=== PATIENT | male | born 1950 | race Caucasian/White ===

== ENCOUNTER 2018-02-21 20:00 | Emergency (ER) | payer OTHER ==
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
== END 2018-02-21 22:42 ==
LOC: JP.ED 20:00
DX: R07.89 Other chest pain (principal); E16.2 Hypoglycemia, unspecified; I10 Essential (primary) hypertension; Z88.8 Allergy status to other drugs, medicaments and biological substances; V47.5XXA Car driver injured in collision with fixed or stationary object in traffic accident, initial encounter
CPT/HCPCS: 70450; 71046; 71046-26; 99285-25